=== PATIENT | female | born 1995 | race Caucasian/White ===

== ENCOUNTER 2019-07-12 12:41 | Emergency (ER) | payer BC ==
--- NOTE | 2019-07-12 13:31 | ER Document Report ---
HPI - HPI Patient complains to provider of: right great toe injury Pain Level: 2 Context: 24 yr old female pt, with the listed pmh, here for right great toe x days. she apparently accidentally dropped an ottoman on it and tore her toe nail off as well. denies any acute blood loss sx. no blood thinners. no numbness, weakness or tingling. no surgeries on this extremity. otc meds helping some. hasn't sought care until now. no pain anywhere else. pt able to walk. denies intoxication. pain worse with movement and palpation. better with rest. no other fall or trauma or associated sx - CONSTITUTIONAL Constitutional: DENIES: Fever, Chills - EENT EENT: DENIES: Sore Throat, Ear Pain, Eye problems - NEURO Neurology: DENIES: Headache, Weakness, Vision blurred, Dizzinesss / Vertigo - CARDIOVASCULAR Cardiovascular: DENIES: Chest pain - RESPIRATORY Respiratory: DENIES: Trouble Breathing, Coughing - GASTROINTESTINAL Gastrointestinal: DENIES: Abdominal Pain, Black / Bloody Stools - URINARY Urinary: DENIES: Dysuria, Urgency, Frequency - REPRODUCTIVE Reproductive: DENIES: : - MUSCULOSKELETAL Musculoskeletal: REPORTS: Extremity pain - right great toe - DERM Skin Color: Normal Past Medical History - Social History Smoking Status: Never Smoker Chew tobacco use (# tins/day): No Frequency of alcohol use: Occasional Drug Abuse: None Patient has suicidal ideation: No Patient has homicidal ideation: No GI Medical History: Reports: Hx Gastroesophageal Reflux Disease - during Past Surgical History: Reports: Hx Tonsillectomy Vertical Provider Document - INFECTION CONTROL TRAVEL OUTSIDE OF THE [place] IN LAST 30 DAYS: No Course - Vital Signs Vital signs: Temp Pulse Resp BP Pulse Ox 98.4 F 56 L 16 108/75 97 07/12/19 12:48 07/12/19 12:48 07/12/19 12:48 07/12/19 12:48 07/12/19 12:48
--- NOTE | 2019-07-12 13:46 | ER Document Report ---
ED Medical Screen (RME) - General Chief Complaint: Toe Injury Stated Complaint: TOE INJURY Time Seen by Provider: 07/12/19 13:20 Mode of Arrival: Ambulatory Information source: Patient Notes: HPI: 24-year-old otherwise healthy female here for right great toe pain after an ottoman crushed it a couple hours ago. the toe nail did peel back but has not completely fallen off and likely needs excision. The area is painful. Pain worse with movement. Better with rest. No numbness or tingling. No blood thinners. no acute blood loss sx or excessive bleeding. No intoxication. Patient is able to walk but has pain. No pain anywhere else. She took Motrin prior to arrival and does not want anything else. denies . PE:>>>> PHYSICAL_EXAM: GENERAL_APPEARANCE: well_nourished, alert, cooperative, no_acute_distress, no_obvious_discomfort. pleasant, young white female, smiling, speaking in full sentences, in no sign of pain or resp distress, VITALS: reviewed, see vital signs table. HEAD: no_swelling\tenderness on the head. normocephalic. atraumatic. no carvalho signs. no raccoons eyes. EYES: EOMI, conjunctiva_clear. NOSE: no_nasal_discharge. MOUTH: (-)decreased moisture. NECK: supple, full rom. full strength. CHEST_WALL: no_chest_tenderness. no overlying skin changes EXTREMITIES: strength 5/5 in all_extremities, good pulses in all_extremities, no_swelling\tenderness in the extremities other than over right great toe. there is a 100% subungual hematoma of the right great toe nail and it is also partially peeled back and appears still attached at the nail bed, no_edema. full rom. gait not assessed due to seeing pt in triage and also due to pts complaint, good pulses. brisk cap refill. 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 NEURO: motor and sensation intact, SKIN: warm, dry, good_color, no_rash. MENTAL_STATUS: speech_clear, oriented_X_3, normal_affect, responds_appropriately to questions. MDM: I have ordered labs an initial work-up and patient will be transferred to the main ER for further work-up. I have greeted and performed a rapid initial assessment of this patient. A comprehensive ED assessment and evaluation of the patient, analysis of test results and completion of the medical decision making process will be conducted by additional ED providers. I have specifically instructed the patient or family members with the patient to immediately return to any nursing staff should anything change in the patient's condition or with their chief complaint. Documentation achieved through voice recording which may lead to some occasional accidental typographical errors. Extensive efforts have been made to proof read documentation to make sure these are as few as possible Category Date Time Status TOE RIGHT [RAD] Stat Exams 07/12/19 13:24 Ordered Temp Pulse Resp BP Pulse Ox 07/12/19 12:48 98.4 F 56 L 16 108/75 97 TRAVEL OUTSIDE OF THE [place] IN LAST 30 DAYS: No - Related Data Allergies/Adverse Reactions: diazepam [From Valium] Allergy (Verified 07/12/19 13:20) latex Allergy (Verified 07/12/19 13:20) Past Medical History - Social History Chew tobacco use (# tins/day): No Frequency of alcohol use: Occasional Drug Abuse: None GI Medical History: Reports: Hx Gastroesophageal Reflux Disease - during Past Surgical History: Reports: Hx Tonsillectomy Physical Exam - Vital signs Vitals: Temp Pulse Resp BP Pulse Ox 98.4 F 56 L 16 108/75 97 07/12/19 12:48 07/12/19 12:48 07/12/19 12:48 07/12/19 12:48 07/12/19 12:48 Course - Vital Signs Vital signs: Temp Pulse Resp BP Pulse Ox 98.4 F 56 L 16 108/75 97 07/12/19 12:48 07/12/19 12:48 07/12/19 12:48 07/12/19 12:48 07/12/19 12:48
--- NOTE | 2019-07-12 14:01 | RADIOLOGY REPORT (SQ) ---
EXAM DESCRIPTION: TOE RIGHT COMPLETED DATE/TIME: 07/12/2019 1:45 pm REASON FOR STUDY: right great toe trauma COMPARISON: None. EXAM PARAMETERS: NUMBER OF VIEWS: Three views. TECHNIQUE: AP, lateral and oblique radiographic images acquired of the right foot. LIMITATIONS: None. FINDINGS: MINERALIZATION: Normal. BONES: No acute fracture or dislocation. No worrisome bone lesions. JOINTS: No effusion. SOFT TISSUES: No significant soft tissue swelling. No radiopaque foreign body. OTHER: No other significant finding. IMPRESSION: NO FRACTURE. TECHNICAL DOCUMENTATION: JOB ID: [id number] [id number] 2010 [employer]- All Rights Reserved Reading location - IP/workstation name: [email or web address]
[2019-07-12] MEDS ORDERED: HYDROCODONE/ACETAMINOPHEN 7.5-325 MG TABLET PO ONE (14:23)
[2019-07-12] MEDS ORDERED: LIDOCAINE 1% INJ-PF (10 MG/ML) 30 ML SDV INJ ONE (14:23)
--- NOTE | 2019-07-12 15:10 | ER Document Report ---
ED Extremity Problem, Lower - General Chief Complaint: Toe Injury Stated Complaint: TOE INJURY Time Seen by Provider: 07/12/19 13:20 Mode of Arrival: Ambulatory Notes: RME NOTE: HPI: 24-year-old otherwise healthy female here for right great toe pain after an ottoman crushed it a couple hours ago. the toe nail did peel back but has not completely fallen off and likely needs excision. The area is painful. Pain worse with movement. Better with rest. No numbness or tingling. No blood thinners. no acute blood loss sx or excessive bleeding. No intoxication. Patient is able to walk but has pain. No pain anywhere else. She took Motrin prior to arrival and does not want anything else. denies . MY HPI: Patient states her tetanus immunization is up-to-date. Patient is requesting pain medication upon my assessment. Patient is denying any medical problems, denies any daily medications, states allergy to diazepam and latex. TRAVEL OUTSIDE OF THE [place] IN LAST 30 DAYS: No - Related Data Allergies/Adverse Reactions: diazepam [From Valium] Allergy (Verified 07/12/19 13:20) latex Allergy (Verified 07/12/19 13:20) Past Medical History - General Information source: Patient - Social History Smoking Status: Never Smoker Chew tobacco use (# tins/day): No Frequency of alcohol use: Occasional Drug Abuse: None Family History: Reviewed & Not Pertinent Patient has suicidal ideation: No Patient has homicidal ideation: No GI Medical History: Reports: Hx Gastroesophageal Reflux Disease - during Past Surgical History: Reports: Hx Tonsillectomy Review of Systems - Review of Systems Constitutional: denies: Fever EENT: No symptoms reported Cardiovascular: No symptoms reported Respiratory: No symptoms reported Gastrointestinal: No symptoms reported Genitourinary: No symptoms reported Female Genitourinary: No symptoms reported Musculoskeletal: See HPI Skin: See HPI Hematologic/Lymphatic: No symptoms reported Neurological/Psychological: No symptoms reported Physical Exam - Vital signs Vitals: Temp Pulse Resp BP Pulse Ox 98.4 F 56 L 16 108/75 97 07/12/19 12:48 07/12/19 12:48 07/12/19 12:48 07/12/19 12:48 07/12/19 12:48 - Notes Notes: GENERAL: Alert, interacts well. No acute distress. HEAD: Normocephalic, atraumatic. EYES: Pupils equal, round, and reactive to light. Extraocular movements intact. ENT: Oral mucosa moist, tongue midline. NECK: Full range of motion. Supple. Trachea midline. LUNGS: Clear to auscultation bilaterally, no wheezes, rales, or rhonchi. No respiratory distress. HEART: Regular rate and rhythm. No murmur ABDOMEN: Soft, non-tender. Non-distended. Bowel sounds present in all 4 quadrants. EXTREMITIES: Moves all 4 extremities spontaneously. No edema, normal radial and dorsalis pedis pulses bilaterally. No cyanosis. Capillary refill distal right great toe less than 2 seconds. BACK: no cervical, thoracic, lumbar midline tenderness. No saddle anesthesia, normal distal neurovascular exam. NEUROLOGICAL: Alert and oriented x3. Normal speech. cranial nerves II through XII grossly intact. PSYCH: Normal affect, normal mood. SKIN: Warm, dry, normal turgor. Patient's right great toe is only held on by a small part of the lateral cuticle. Course - Re-evaluation Re-evalutation: 07/12/19 15:13 Right great toe removed, patient tolerated well, see procedure note. Discussed close follow-up with primary care provider and media relations manager. At this time will discharge with return precautions and follow-up recommendations. Verbal discharge instructions given a the bedside and opportunity for questions given. Medication warnings reviewed. Patient is in agreement with this plan and has verbalized understanding of return precautions and the need for primary care follow-up in the next 24-72 hours. This medical record was dictated with voice recognizing software. There may be grammatical, syntax errors that are unintended. 07/12/19 15:15 Toe X-Ray 07/12/19 13:24 IMPRESSION: NO FRACTURE. - Vital Signs Vital signs: Temp Pulse Resp BP Pulse Ox 98.4 F 56 L 16 108/75 97 07/12/19 12:48 07/12/19 12:48 07/12/19 12:48 07/12/19 12:48 07/12/19 12:48 Procedures - Nail Trephanation/Removal Right great toe Nail Trepanation/Removal Location: Right great toe Betadine prep applied: Yes Sterile Dressing Applied: Yes Finger Splint: No Notes: 07/12/19 15:13 Digital block applied, right great toenail easily removed as it was only attached a small aspect of the lateral cuticle. No underlying nailbed laceration noted. Patient tolerated well. Discharge - Discharge Clinical Impression: Toenail torn away Injury of right great toe Qualifiers: Encounter type: initial encounter Qualified Code(s): S99.921A - Unspecified injury of right foot, initial encounter Condition: Stable Disposition: HOME, SELF-CARE Additional Instructions: As we discussed you have been seen and treated in the emergency department for an injury to your right great toe. The nail has successfully been removed. Please make sure you keep the wound clean and dry. Do not submerge the wound. Please follow-up with your primary care provider or podiatry, phone numbers will be provided. Return to the emergency room for any concerns. Prescriptions: Naproxen 500 mg PO BID #20 tablet Referrals: CELI HULL DPM [ACTIVE STAFF] - Follow up as needed MATT DURÁN DPM [ACTIVE STAFF] - Follow up as needed
[2019-07-12 16:27] VITALS: BP 105/68
== END 2019-07-12 15:30 | disposition home or self-care (01) ==
LOC: ER 12:41
DX: S91.201A Unspecified open wound of right great toe with damage to nail, initial encounter (principal); X58.XXXA Exposure to other specified factors, initial encounter; Y93.89 Activity, other specified; Z88.8 Allergy status to other drugs, medicaments and biological substances; Z91.040 Latex allergy status
CPT/HCPCS: 99283

== ENCOUNTER 2020-10-03 23:19 | Outpatient (CLI) | payer BC, MEDICAID ==
[2020-10-04 00:18] LABS: APPEARANCE,URINE SLIGHTLY-CLOUDY; BILIRUBIN,URINE NEGATIVE (NEGATIVE); COLOR,URINE YELLOW; GLUCOSE, URINE 150 mg/dL (NEGATIVE); KETONES,URINE NEGATIVE (NEGATIVE); LEUKOCYTE ESTERASE,URINE NEGATIVE (NEGATIVE); NITRITE,URINE NEGATIVE (NEGATIVE); PROTEIN,URINE NEGATIVE (NEGATIVE); URINE SPECIFIC GRAVITY 1.014
[2020-10-04 00:55] LABS: URINE AMPHETAMINES SCREEN NEGATIVE; URINE BARBITURATES SCREEN NEGATIVE; URINE BENZODIAZEPINES SCREEN NEGATIVE; URINE COCAINE SCREEN NEGATIVE; URINE MARIJUANA (THC) SCREEN NEGATIVE; URINE METHADONE SCREEN NEGATIVE; URINE PHENCYCLIDINE SCREEN NEGATIVE
--- NOTE | 2020-10-04 01:47 | RADIOLOGY REPORT (SQ) ---
Ultrasound OB limited on 10/04/2020 at 1:06 AM Clinical indications: labor, evaluate cervical length COMPARISON: None FINDINGS: Limited sonographic imaging is performed throughout the pelvis by transabdominal approach only, both transverse and sagittal images are obtained. Single living intrauterine fetus is noted in cephalic presentation. Placenta is posterior in location with no evidence of placenta previa or abruption. Positive cardiac activity is noted with heart rate of 140 bpm. Estimated gestational age by measurements is an approximate 30 week six day gestation. Estimated weight is 1633 g +/- 242 g which is at the 56 percentile. Normal amount of amniotic fluid is noted with amniotic fluid index of 10.9 cm. Cervical length measures approximately 3.1 cm and the cervix is closed. No gross abnormality is noted on limited imaging. IMPRESSION: 1. Single living approximate 30 week six day intrauterine fetus in cephalic presentation. 2. Cervical length measures approximately 3.1 cm.
== END 2020-10-04 01:37 | disposition home or self-care (01) ==
LOC: LC 23:19
PROVIDERS: ATTEND Obstetrics & Gynecology
DX: O47.03 False labor before 37 completed weeks of gestation, third trimester (principal); Z3A.29 29 weeks gestation of pregnancy
CPT/HCPCS: 76815; 80307; 81001